=== PATIENT | male | born 1960 | race Caucasian/White ===

== ENCOUNTER 2020-06-08 09:17 | Emergency (ER) | payer BC, OTHER ==
[~2020-06-08] VITALS: Ht 180.3 cm; Wt 81.7 kg
--- NOTE | ~2020-06-08 | EMS ---
[address] [address] EMS Patient Care Report Name: SARITHA LLANES Room #: PRE ER M.R.#: [id number] Admission: Attend Phys: Discharge: Date of : 60 Report #: [id number] THIS REPORT FOR: //name// Report Transmitted: 06/08/2020 09:06 EMS Care Summary [facility] MED-ACT Incident [id number] @ 06/08/2020 08:51 Incident Location [address] Patient SARITHA LLANES Male, 60 Years 1960 Patient Address [address] [place] [address] Patient History Hernia (Abdominal), Patient Allergies No known allergies, Patient Medications None Reported, Chief Complaint Nausea Disposition Transported No Lights/[place] Dispatch Reason Chest Pain (Non-Traumatic) Transported To [facility] Narrative [id number] dispatched for a 60 y/o male, chest pain. Arrived on scene, pt contact made in ER10. Pt on ER bed upon our arrival. Pt is alert and oriented with a GCS of 15. Pt started experiencing symptoms of dry heaving and nausea at 3 AM. Attempted to come into work but started experiencing pain on his ULQ, near [address] [address] EMS Patient Care Report Name: SARITHA LLANES Room #: PRE M.R.#: [id number] Admission: Attend Phys: Discharge: Date of : 60 Report #: [id number] lower ribs. Pt states he does not feel any further pain when taking a deep breath. Assessment and vitals EMT B documented above. Normal sinus on 12 lead. Pt has been experiencing abdominal pain and nausea for 6 weeks. Pt did have a positive COVID exposure 3 weeks ago, but has tested negative since the exposure. No prior cardiac hx but significant issues with abdominal pain, hernias and undiagnosed symptoms of nausea and vomiting for several years. Pt received ASA, Zofran 8 mg EMT B via IV established EMT B. Pt able to move over to cot, secured to cot and moved to back of unit. Pt denies any nausea after Zofran administration. Enroute to [facility] per pt request. Placed pt back on monitor, sinus rhythm, secondary vitals documented above, radio report given to [facility] staff 4 min EMT B. Arrived at [facility], moved pt inside via cot transport. Onto ER bed via pt's own power. Gave report to receiving RN and transferred care. Kenneth Mazariegos Planer Operator / Grader Initial Vitals @09:11P: 83,BP: 149/86,SpO2: 98, @09:10P: 76,SpO2: 99, @09:06P: 77,BP: 160/89,SpO2: 99, @PTAP: 73,R: 18,BP: 162/88,Pain: 2/10,GCS: 15,SpO2: 98,Revised Trauma: 12, Assessments @09:11MENTAL:Person Oriented,Time Oriented,Event Oriented,Place Oriented,SKIN:HEENT:Head/Face: No Abnormalities,Neck/Airway: No Abnormalities,LUNG SOUNDS:General: Nausea,Left Lower: Other,Left Upper: No Abnormalities,Right Lower: No Abnormalities,ABDOMEN:General: Nausea,Left Lower: Other,Left Upper: No Abnormalities,Right Lower: No Abnormalities,PELVIS//GI:No Abnormalities,EXTREMITIES:Left Arm: No Abnormalities,Right Arm: No Abnormalities,Left Leg: No Abnormalities,Right Leg: No Abnormalities,PULSE:Radial: 2+ Normal,NEURO:No Abnormalities, Impression Abdominal Pain Procedures @09:00ALS AssessmentResponse: UnchangedSucceeded@09:103-Lead ECGResponse: UnchangedSucceeded@PTAOndansetron - 8 Milligrams (mg) - Intravenous (IV)Response: Improved@PTANormal Saline (.9% NaCl) 100cc (20 ga) Site: Forearm-RightResponse: UnchangedSucceeded@PTAAspirin - 325 Milligrams (mg) - OralResponse: Unchanged Timeline EMT B,Ondansetron - 8 Milligrams (mg) - Intravenous (IV),Response: [place] [address] EMS Patient Care Report Name: SARITHA LLANES Room #: [facility] M.R.#: [id number] Admission: Attend Phys: Discharge: Date of : 60 Report #: [id number] EMT B,Normal Saline (.9% NaCl) 100cc 20 ga Site: Forearm-Right,Response: UnchangedSucceeded, EMT B,Aspirin - 325 Milligrams (mg) - Oral,Response: Unchanged EMT B,BP: 162/88 M,PULSE: 73,RR: 18 R,SPO2: 98 Ox,ETCO2: ,BG: ,PAIN: 2,GCS: 15, 08:49,Call Received 08:49,Psap Call 08:51,Dispatched 08:52,En Route 08:57,On Scene 08:58,At Patient 09:00,ALS Assessment,Response: UnchangedSucceeded, 09:05,Depart Scene 09:06,BP: 160/89 M,PULSE: 77,RR: R,SPO2: 99 Ox,ETCO2: ,BG: ,PAIN: ,GCS: , 09:10,3-Lead ECG,Response: UnchangedSucceeded, 09:10,At Destination 09:10,BP: / M,PULSE: 76,RR: R,SPO2: 99 Ox,ETCO2: ,BG: ,PAIN: ,GCS: , 09:11,BP: 149/86 M,PULSE: 83,RR: R,SPO2: 98 Ox,ETCO2: ,BG: ,PAIN: ,GCS: , 09:15,Transfer Patient 09:33,Call Closed Disclaimer v1.1 Copyright 2020 [employer] This EMS Care Summary contains data elements from the applicable legal record (which may be displayed differently). It is designed to provide pertinent information for the following purposes: continuity of care, clinical quality, and state data reporting. The complete legal record is available to ED staff and administrators of the receiving hospital in [employer] Patient Tracker. All data is provided "as is."
--- NOTE | ~2020-06-08 | EMS ---
[address] [address] EMS Patient Care Report Name: SARITHA LLANES Room #: DEP [place] Jimenez#: [id number] Admission: 06/08/20 Attend Phys: Discharge: 06/08/20 Date of : 60 Report #: [id number] THIS REPORT FOR: //name// Report Transmitted: 06/10/2020 08:42 EMS Care Summary [facility] MED-ACT Incident [id number] @ 06/08/2020 08:51 Incident Location [address] Patient SARITHA LLANES Male, 60 Years 1960 Patient Address [address] [place] [address] Patient History Hernia (Abdominal), Patient Allergies No known allergies, Patient Medications None Reported, Chief Complaint Nausea Disposition Transported No Lights/[place] Dispatch Reason Chest Pain (Non-Traumatic) Transported To [facility] Narrative M1144 dispatched for a 60 y/o male, chest pain. Arrived on scene, pt contact made in ER10. Pt on ER bed upon our arrival. Pt is alert and oriented with a GCS of 15. Pt started experiencing symptoms of dry heaving and nausea at 3 AM. Attempted to come into work but started experiencing pain on his ULQ, near [facility] [address] [place] [address] EMS Patient Care Report Name: SARITHA LLANES Room #: DEP Tony#: [id number] Admission: 06/08/20 Attend Phys: Discharge: 06/08/20 Date of : 60 Report #: [id number] lower ribs. Pt states he does not feel any further pain when taking a deep breath. 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 Normal sinus on 12 lead. Pt has been experiencing abdominal pain and nausea for 6 weeks. Pt did have a positive COVID exposure 3 weeks ago, but has tested negative since the exposure. No prior cardiac hx but significant issues with abdominal pain, hernias and undiagnosed symptoms of nausea and vomiting for several years. Pt received ASA, Zofran 8 mg UNISHEAR OPERATOR via IV established UNISHEAR OPERATOR. Pt able to move over to cot, secured to cot and moved to back of unit. Pt denies any nausea after Zofran administration. Enroute to [facility] per pt request. Placed pt back on monitor, sinus rhythm, secondary vitals documented above, radio report given to [facility] staff 4 min UNISHEAR OPERATOR. Arrived at [facility], moved pt inside via cot transport. Onto ER bed via pt's own power. Gave report to receiving RN and transferred care. Kenneth Mazariegos Construction Helper Appended: 324 mg Baby Asprin UNISHEAR OPERATOR, mistake on dose on flowchart. Initial Vitals @09:11P: 83,BP: 149/86,SpO2: 98, @09:06P: 77,BP: 160/89,SpO2: 99, @09:10P: 76,SpO2: 99, @PTAP: 73,R: 18,BP: 162/88,Pain: 2/10,GCS: 15,SpO2: 98,Revised Trauma: 12, Assessments @09:11MENTAL:Person Oriented,Time Oriented,Event Oriented,Place Oriented,SKIN:HEENT:Head/Face: No Abnormalities,Neck/Airway: No Abnormalities,LUNG SOUNDS:General: Nausea,Left Lower: Other,Left Upper: No Abnormalities,Right Lower: No Abnormalities,ABDOMEN:General: Nausea,Left Lower: Other,Left Upper: No Abnormalities,Right Lower: No Abnormalities,PELVIS//GI:No Abnormalities,EXTREMITIES:Left Arm: No Abnormalities,Right Arm: No Abnormalities,Left Leg: No Abnormalities,Right Leg: No Abnormalities,PULSE:Radial: 2+ Normal,NEURO:No Abnormalities, Impression Abdominal Pain Procedures @09:00ALS AssessmentResponse: UnchangedSucceeded@09:103-Lead ECGResponse: UnchangedSucceeded@PTAOndansetron - 8 Milligrams (mg) - Intravenous (IV)Response: Improved@PTANormal Saline (.9% NaCl) 100cc (20 ga) Site: Forearm-RightResponse: UnchangedSucceeded@PTAAspirin - 325 Milligrams (mg) - OralResponse: Unchanged Timeline [address] [address] EMS Patient Care Report Name: SARITHA LLANES Room #: YANCY Jimenez#: [id number] Admission: 06/08/20 Attend Phys: Discharge: 06/08/20 Date of : 60 Report #: [id number] UNISHEAR OPERATOR,Ondansetron - 8 Milligrams (mg) - Intravenous (IV),Response: Improved UNISHEAR OPERATOR,Normal Saline (.9% NaCl) 100cc 20 ga Site: Forearm-Right,Response: UnchangedSucceeded, UNISHEAR OPERATOR,Aspirin - 325 Milligrams (mg) - Oral,Response: Unchanged UNISHEAR OPERATOR,BP: 162/88 M,PULSE: 73,RR: 18 R,SPO2: 98 Ox,ETCO2: ,BG: ,PAIN: 2,GCS: 15, 08:49,Call Received 08:49,Psap Call 08:51,Dispatched 08:52,En Route 08:57,On Scene 08:58,At Patient 09:00,ALS Assessment,Response: UnchangedSucceeded, 09:05,Depart Scene 09:06,BP: 160/89 M,PULSE: 77,RR: R,SPO2: 99 Ox,ETCO2: ,BG: ,PAIN: ,GCS: , 09:10,3-Lead ECG,Response: UnchangedSucceeded, 09:10,At Destination 09:10,BP: / M,PULSE: 76,RR: R,SPO2: 99 Ox,ETCO2: ,BG: ,PAIN: ,GCS: , 09:11,BP: 149/86 M,PULSE: 83,RR: R,SPO2: 98 Ox,ETCO2: ,BG: ,PAIN: ,GCS: , 09:15,Transfer Patient 09:33,Call Closed Disclaimer v1.1 Copyright 2020 [employer] This EMS Care Summary contains data elements from the applicable legal record (which may be displayed differently). It is designed to provide pertinent information for the following purposes: continuity of care, clinical quality, and state data reporting. The complete legal record is available to ED staff and administrators of the receiving hospital in [employer] Patient Tracker. All data is provided "as is."
[~2020-06-08 09:17] MED LIST: CALTRATE 600 +1 EACH PO; MULTIVITAMINS
[2020-06-08] MEDS ORDERED: PROTONIX40 M2 PO (09:53)
[2020-06-08] MEDS ORDERED: BENTYL 10 MG CA10 M1 PO (09:54)
[2020-06-08] MEDS ORDERED: BUDESONIDE EC3 MG PO (09:54)
[2020-06-08] MEDS ORDERED: HYDROCHLOROTHIA25 M2 PO (09:54)
[2020-06-08] MEDS ORDERED: TAMSULOSIN HCL0.4 MG PO (09:54)
[2020-06-08 10:02] LABS: URINE BILIRUBIN NEGATIVE (Negative); URINE BLOOD NEGATIVE (Negative); URINE CLARITY CLEAR; URINE COLOR YELLOW; URINE GLUCOSE-RANDOM* NEGATIVE (Negative); URINE KETONES NEGATIVE (Negative); URINE LEUKOCYTES-REFLEX 1+ (Negative); URINE NITRITE-REFLEX NEGATIVE (Negative); URINE PROTEIN (DIPSTICK) NEGATIVE (Negative); URINE UROBILINOGEN 0.2 E.U./dl (0.2-1.0)
[2020-06-08 10:04] LABS: ABSOLUTE NEUTROPHILS 3.6 thou/uL (1.4-8.2); BASOPHILS 0.6 % (0.0-2.0); EOSINOPHILS 0.4 % (0.0-3.0); HEMATOCRIT 39.2 % (42.0-52.0); HEMOGLOBIN 13.5 gm/dL (14.0-18.0); LYMPHOCYTES 30.9 % (24.0-44.0); MCH 34.6 pg (26.0-34.0); MCHC 34.5 g/dL (28.0-37.0); MCV 100.2 fL (80.0-100.0); MONOCYTES 8.4 % (1.0-8.0); PLATELET COUNT 114 thou/uL (150-400); POLYS 59.7 % (36.0-66.0); RBC 3.91 mil/uL (4.50-6.00); RDW 12.9 % (10.5-14.5)
[2020-06-08 10:09] LABS: ANION GAP 14 mmol/L (7-16); BUN 13 mg/dL (7-18); CALCIUM 8.1 mg/dL (8.5-10.1); CHLORIDE 103 mmol/L (98-107); CO2 22 mmol/L (21-32); CREATININE 0.9 mg/dL (0.7-1.3); GLUCOSE 119 mg/dL (74-106); POTASSIUM 3.2 mmol/L (3.5-5.1); SODIUM 139 mmol/L (136-145)
[2020-06-08 10:20] LABS: CASTS None Seen /LPF (None Seen); CRYSTALS None Seen /LPF (None Seen); SQUAMOUS 0-3 Few /LPF (0-3); URINE RBC None Seen /HPF (0-2)
[2020-06-08 10:21] LABS: BACTERIA-REFLEX 1-9 Few /HPF (None Seen); URINE WBC-REFLEX 0-5 Rare /HPF (0-5)
[2020-06-08 10:25] LABS: ALBUMIN 3.2 g/dL (3.4-5.0); LIPASE 271 U/L (73-393); SGOT 53 U/L (15-37); SGPT 60 U/L (30-65); TOTAL PROTEIN 6.3 g/dL (6.4-8.2); TROPONIN-I <0.06 ng/mL (<0.06)
--- NOTE | 2020-06-08 10:25 | EKG ---
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
[2020-06-08 11:55] LABS: AMP/METHAMP Negative (Negative); BARBITURATES Negative (Negative); BENZODIAZEPINES Negative (Negative); COCAINE Negative (Negative); METHADONE Negative (Negative); OPIATES Negative (Negative); PCP Negative (Negative)
[2020-06-08] MEDS ORDERED: ONDANSETRON ODT8 MG PO (11:55)
[2020-06-08 11:56] VITALS: BP 142/80
[2020-06-08] MEDS ORDERED: MAG-OXIDE400 MG PO (11:56)
== END 2020-06-08 11:56 | disposition home or self-care (01) ==
LOC: ER 09:17
PROVIDERS: Emergency Medicine
DX: R55 Syncope and collapse (principal); E87.6 Hypokalemia; E83.42 Hypomagnesemia; K58.9 Irritable bowel syndrome, unspecified; R11.2 Nausea with vomiting, unspecified; R00.2 Palpitations; Z20.828 Contact with and (suspected) exposure to other viral communicable diseases; R42 Dizziness and giddiness; R19.7 Diarrhea, unspecified; Z98.890 Other specified postprocedural states; Z79.899 Other long term (current) drug therapy